=== PATIENT | male | born 1975 | race Caucasian/White ===

== ENCOUNTER 2017-04-02 12:07 | Emergency (ER) | payer OTHER ==
[~2017-04-02] VITALS: Ht 177.8 cm; Wt 95.1 kg
[~2017-04-02 12:07] MED LIST: HYDR5TAB27 PO; NXM/40 PO; PIRB200A INH
[2017-04-02 12:11] VITALS: TEMP 36.8; Ht 177.8 cm; Wt 95.1 kg
[2017-04-02] MEDS ORDERED: SULF800T23 PO (12:47)
[2017-04-02] MEDS ORDERED: TADA20TA PO (12:47)
--- NOTE | 2017-04-02 12:48 | EMERGENCY ROOM VISIT NOTE ---
History Report prepared by Nava: Gi Hernández Under the Supervision of: Dr. Emanuel Cervantes M.D. First contact with patient: 12:17 Chief Complaint: WOUND INFECTION Stated Complaint: BACK SURGERY OPEN WOUND WITH DISCHARGE Nursing Triage Summary: pt verbalizes he just had lower back surgery two weeks ago, took stitches out and replaced with steri strips. Pt verbalizes steri strips came off and now "there's a hole in my back with white drainage". Pts pcp referred pt here for checkup. History of Present Illness The patient is a 41 year old male who presents to the Emergency Room with complaints of persistent wound drainage starting 2 days ago. He had back surgery 2 weeks ago where 2 nodules on his right and left lower back were removed. The stitches were taken out 2 days ago at which time he was told the wounds were healing well. He had some discharge, but was told that it was normal and to put steri strips on. This morning he noticed a milky white discharge and came to the ED over concerns of infection. He denies any fever. He denies having any other medical problems. He is now on Bactrim. Source of History: patient Onset: 2 days ago Position: back (lower) Quality: other (wound drainage) Timing: other (persistent) Associated Symptoms: No fevers Review of Systems See HPI for pertinent positives & negatives. A total of 10 systems reviewed and were otherwise negative. Past Medical & Surgical Medical Problems: (1) Asthma Family History No pertinent family history stated. Social History Smoking Status: Never Smoker Marital Status: Occupation Status: employed Current/Historical Medications Scheduled Esomeprazole Magnesium (Nexium), 40 MG PO DAILY Sulfa/Trimethoprim (Bactrim Ds 800MG/160MG), 1 TAB PO BID Tadalafil (Cialis), 20 MG PO UD Scheduled PRN Hydrocodone/Acetaminophen 5MG/500MG (Vicodin (5MG/500MG)), 1 TABLET PO Q6H PRN for Pain Pirbuterol Acetate (Maxair Autohaler), 2 PUFFS INH Q4WK PRN for SOB/Wheezing Allergies Coded Allergies: Aspirin (Unverified Allergy, Mild, S.O.B, 04/02/17) Uncoded Allergies: ASA (Allergy, Unknown, SHORTNESS OF BREATH, 04/02/17) pt staes he has never taken aspirin, but was told to never take it r/t asthma Physical Exam Vital Signs Date Time Temp Pulse Resp B/P Pulse Ox O2 Delivery O2 Flow Rate FiO2 04/02/17 12:11 36.8 58 18 147/58 97 Room Air Physical Exam GENERAL: Patient is in no acute distress. HEENT: No acute trauma, normocephalic atraumatic, mucous membranes moist, no nasal congestion, no scleral icterus. NECK: No stridor, no adenopathy, no meningismus, trachea is midline. LUNGS: Clear to auscultation bilaterally, no wheeze, no rhonchi, breath sounds equal. HEART: Without murmurs gallops or rubs, regular rate and rhythm. ABDOMEN: Soft, nontender, bowel sounds positive, no hernias, no peritonitis. BACK: Two horizontal incisions to the lower lumbar spine, one on the left and one on the right, no midline spinal work was done, the wounds are each partially open, more so on the right, steri strips are partially in place, clear to serous discharge, no cellulitis, no foul odor. EXTREMITIES: No cyanosis or edema, full range of motion of all the joints without pain or difficulty, no signs for acute trauma. NEUROLOGIC: Oriented x 3, no acute motor or sensory deficits, no focal weakness. SKIN: No rash, no jaundice, no diaphoresis. Medical Decision & Procedures ED Course 1219: The patient was evaluated in room B7. A complete history and physical exam was performed. 1252: I discussed the patient's case with Judit Patel. He will see the patient on Tuesday. 1305: I reevaluated the patient. I discussed results and discharge instructions : he verbalized understanding and agreement. The patient is ready for discharge. Medical Decision Differential diagnoses considered include cellulitis, wound infection, abscess. The patient presents with concerns for wound infection. On exam, he is not febrile. There is no cellulitis. The drainage is serous and not pus like. The patient's wounds have opened, there is no obvious infection currently. He is on Bactrim and should continue this. I spoke to the patient's surgeon. The patient is being discharged with conservative measures. He will be seen in the office in 2 days. Before discharge, the patient had new Steri-Strips applied and dressings were placed. Consults Time Called: 1226 Consulting Physician: Judit Patel Returned Call: 1252 I discussed the patient's case with him. He will see the patient on Tuesday. Impression Primary Impression: Wound dehiscence Scribe Attestation The scribe's documentation has been prepared under my direction and personally reviewed by me in its entirety. I confirm that the note above accurately reflects all work, treatment, procedures, and medical decision making performed by me. Departure Information Dispostion Home / Self-Care Referrals No Doctor, Assigned (PCP) Forms HOME CARE DOCUMENTATION FORM, IMPORTANT VISIT INFORMATION Patient Instructions My [facility] Additional Instructions keep areas covered and watch for infection---fever, cloudy drainage, redness continue the Bactrim see your surgeon on Tuesday---call for an appt
[2017-04-02 13:20] VITALS: BP 135/62; PULSE 64; O2SAT 98
== END 2017-04-02 13:20 | disposition home or self-care (01) ==
LOC: C.EDB 12:11
DX: T81.30XA Disruption of wound, unspecified, initial encounter (principal); X58.XXXA Exposure to other specified factors, initial encounter; J45.909 Unspecified asthma, uncomplicated; Z79.899 Other long term (current) drug therapy; Z88.6 Allergy status to analgesic agent

== ENCOUNTER 2017-11-19 20:45 | Emergency (ER) | payer OTHER ==
[~2017-11-19] VITALS: Ht 177.8 cm; Wt 97.0 kg
[~2017-11-19 20:45] MED LIST changes: +SULF800T23 PO; +TADA20TA PO
[2017-11-19 20:47] VITALS: Ht 177.8 cm; Wt 97.0 kg
[2017-11-19] MEDS ORDERED: ONDANSETRON INJ 2 MG/ML 2 ML VIAL IV STA (21:32)
[2017-11-19] MEDS ORDERED: FENTANYL CITRATE INJ 50 MCG/1 ML 2 ML VIAL IV STA (21:32)
[2017-11-19] MEDS ORDERED: CLB200 PO (21:49)
[2017-11-19] MEDS ORDERED: ALBU18002 PO (21:49)
[2017-11-19] MEDS ORDERED: FLVHFA44 INH (21:50)
--- NOTE | 2017-11-19 22:31 | Endo History and Physical ---
History & Physical Date of Service: Nov 19, 2017. Chief Complaint: Referring Physician: History of Present Illness Patient eating steak and having food bolus obstruction Past Surgical History Hx Cardiac Surgery: No Hx Internal Defibrillator: No Hx Pacemaker: No Hx Abdominal Surgery: No Hx Cancer Surgery: No Hx Thoracic Surgery: No Hx Orthopedic: No Hx Urinary Tract Surgery: No Social History Smoking Status: Never Smoker Hx Substance Use: Yes (USES VICODIN PRN BACK PAIN) Hx Alcohol Use: No Allergies Coded Allergies: Aspirin (Unverified Allergy, Mild, S.O.B, 11/19/17) Uncoded Allergies: ASA (Allergy, Unknown, SHORTNESS OF BREATH, 04/02/17) pt staes he has never taken aspirin, but was told to never take it r/t asthma Current Medications Reported Home Medications Medications Dose Route/Sig Max Daily Dose Days Date Category Flovent Hfa (Fluticasone Propionate) 120 Puffs/5280 Mcg Aero 2 Puffs INH BID 30 11/19/17 Reported Proair Respiclick (Albuterol Sulfate) 108 Mcg/Act Aer 1 Puff PO DAILY PRN 11/19/17 Reported Celebrex (Celecoxib) 200 Mg Cap 200 Mg PO DAILY PRN 11/19/17 Reported Nexium (Esomeprazole Magnesium) 40 Mg Capcr 40 Mg PO DAILY 11/02/13 Reported Vital Signs Weight (Kilograms): 97.000 Height (Feet): 5 Height (Inches): 10.00 Date Time Temp Pulse Resp B/P (MAP) Pulse Ox O2 Delivery O2 Flow Rate FiO2 11/19/17 22:04 57 11/19/17 20:49 99 Room Air 11/19/17 20:47 36.7 58 18 148/91 99 Room Air Physical Exam General Appearance: + mild distress Respiratory/Chest: Auscultation: breath sounds normal Cardiovascular: Heart Auscultation: RRR (slightly tachy) Abdomen: Inspection & Palpation: soft Liver: non-tender Assessment and Plan stable for EGD in OR
[2017-11-19 22:36] VITALS: O2SAT 99
--- NOTE | 2017-11-19 23:07 | EMERGENCY ROOM VISIT NOTE ---
History Report prepared by Nava: Jareth Bruno Under the Supervision of: Dr. Fermin Gandara D.O. First contact with patient: 20:53 Chief Complaint: FOOD BOLUS Stated Complaint: ESOPHAGUS IS CLOSED History of Present Illness The patient is a 42 year old male who presents to the Emergency Room with complaints of constant problems swallowing for the past hour. Patient states the symptoms came on when he was trying to eat a piece of steak prior to arrival. He adds that he has been unable to eat any food. He states he is unable to swallow his own spit. Patient has associated symptoms of vomiting when he swallows his spit. He adds he has a history of these esophageal problems. He states the last time he was dilatated by his GI doctor was 2 years ago. Patient has been intermittently using his inhaler for his asthma. Source of History: patient Onset: 1 hour ago Position: throat Timing: constant Modifying Factors (Relieving): other (None) Associated Symptoms: + vomiting Review of Systems See HPI for pertinent positives & negatives. A total of 10 systems reviewed and were otherwise negative. Past Medical & Surgical Medical Problems: (1) Asthma Family History No pertinent family history. Social History Smoking Status: Never Smoker Marital Status: Occupation Status: employed Current/Historical Medications Scheduled Esomeprazole Magnesium (Nexium), 40 MG PO DAILY Fluticasone Propionate (Flovent Hfa), 2 PUFFS INH BID Scheduled PRN Albuterol Sulfate (Proair Respiclick), 1 PUFF PO DAILY PRN for Shortness of Breath Celecoxib (Celebrex), 200 MG PO DAILY PRN for Pain Allergies Coded Allergies: Aspirin (Unverified Allergy, Mild, S.O.B, 11/19/17) Physical Exam Vital Signs Date Time Temp Pulse Resp B/P (MAP) Pulse Ox O2 Delivery O2 Flow Rate FiO2 11/20/17 01:00 36.2 69 16 107/52 (70) 96 Room Air 11/20/17 00:40 36.3 63 20 117/73 94 Room Air 11/20/17 00:30 71 14 126/82 97 Room Air 11/20/17 00:20 76 20 119/75 96 Room Air 11/20/17 00:10 71 16 133/83 97 Room Air 11/20/17 00:00 36.2 77 20 138/84 98 Room Air 11/19/17 22:36 54 20 129/74 99 Room Air 11/19/17 22:04 57 11/19/17 20:49 99 Room Air 11/19/17 20:47 36.7 58 18 148/91 99 Room Air Physical Exam CONSTITUTIONAL/VITAL SIGNS: Reviewed / noted above. GENERAL: Non-toxic in appearance. INTEGUMENTARY: Warm, dry, and [place]. HEAD: Normocephalic. EYES: without scleral icterus or trauma. ENT/OROPHARYNX: clear and moist. LYMPHADENOPATHY/NECK: Is supple without lymphadenopathy or meningismus. RESPIRATORY: Lungs clear and equal. CARDIOVASCULAR: Regular rate and rhythm. GI/ABDOMEN: Soft and nontender. No organomegaly or pulsatile mass. No rebound or guarding. Normal bowel sounds. EXTREMITIES: Warm and well perfused. BACK: No CVA tenderness. NEUROLOGICAL: Intact without focal deficits. PSYCHIATRIC: normal affect. MUSCULOSKELETAL: Normally developed with good muscle tone. Medical Decision & Procedures Medications Administered Medications (Trade) Dose Ordered Sig/Lizet Route Start Time Stop Time Status Last Admin Dose Admin Ondansetron HCl (Zofran Inj) 4 mg NOW STAT IV 11/19/17 21:32 11/19/17 21:33 DC 11/19/17 21:53 4 MG Fentanyl Citrate (Fentanyl Inj) 50 mcg NOW STAT IV 11/19/17 21:32 11/19/17 21:33 DC 11/19/17 21:54 50 MCG ED Course 2054: Previous medical records were reviewed. The patient was evaluated in room C1. A complete history and physical examination was performed. 2130: I reassessed the patient and updated him on my talk with Dr. Raines. 2131: Fentanyl Citrate 50mcg IV, Zofran Inj 4mg IV 5: On reevaluation, the patient is resting comfortably. I discussed the results and findings with the patient. He verbalized agreement of the treatment plan. He was discharged home. Medical Decision Differential considered: pancreatitis, hepatitis, acute cholecystitis, AAA, UTI , pyelonephritis, kidney stones, appendicitis, diverticulitis, shingles, bowel obstruction, mesenteric ischemia, intussusception,hernia, testicular torsion. This is a 42-year-old male who presents to the ED with a chief complaint of esophageal food obstruction. The patient states that he has a history of eosinophilic esophagitis. About an hour prior to his arrival he was eating steak and after his first bite of steak, the patient could not swallow anymore. He has been spitting up his saliva since that time. He has seen Dr. Smith and Dr. Daniels in the past. The patient reports having his last dilatation of the esophagus 2 years ago. The patient has no other complaints. His physical exam was unremarkable. He is spitting up his saliva. After exam, I spoke with the GI specialist who will come and see the patient taken to the operating room. The patient was given some IV Zofran and IV fentanyl for discomfort. He was taken to the operating suite for endoscopy. Medication Reconcilliation Current Medication List: was personally reviewed by me Blood Pressure Screening Patient's blood pressure: Normal blood pressure Blood pressure disposition: Did not require urgent referral Consults Time Called: 2122 Consulting Physician: Dr. Olu Linares GI Returned Call: 2126 Discussed the patient's case. The patient will be evaluated for further treatment and disposition. Impression Primary Impression: Esophageal obstruction due to food impaction Scribe Attestation The scribe's documentation has been prepared under my direction and personally reviewed by me in its entirety. I confirm that the note above accurately reflects all work, treatment, procedures, and medical decision making performed by me. Departure Information Dispostion Home / Self-Care Referrals No Doctor, Assigned (PCP) Forms HOME CARE DOCUMENTATION FORM, IMPORTANT VISIT INFORMATION, WORK / SCHOOL INSTRUCTIONS Patient Instructions My [facility]
[2017-11-19] MEDS ORDERED: LIDOCAINE HCL 2% 2 ML VIAL (20MG/ML) ONE (23:15)
[2017-11-19] MEDS ORDERED: PROPOFOL IV EMULSION 10 MG/ML 20 ML VIAL IV ONE (23:15)
[2017-11-19] MEDS ORDERED: FENTANYL CITRATE INJ 50 MCG/1 ML 2 ML VIAL ONE (23:15)
[2017-11-19] MEDS ORDERED: SUCCINYLCHOLINE CHLORIDE 20 MG/ML 10 ML VIAL IV ONE (23:15)
[2017-11-19] MEDS ORDERED: ONDANSETRON INJ 2 MG/ML 2 ML VIAL ONE (23:53)
--- NOTE | 2017-11-20 00:09 | Discharge Instructions ---
Endoscopy Patient Instructions Date / Procedure(s) Performed Nov 20, 2017. EGD Allergy Information Coded Allergies: Aspirin (Unverified Allergy, Mild, S.O.B, 11/19/17) Uncoded Allergies: ASA (Allergy, Unknown, SHORTNESS OF BREATH, 04/02/17) pt staes he has never taken aspirin, but was told to never take it r/t asthma Discharge Date / Findings Nov 20, 2017. Food bolus removal/esophageal stricture Medication Instructions You must be compliant with your medications. Provider Instructions Activity Restrictions - No exercising or heavy lifting for 24 hours. - Do not drink alcohol the day of the procedure. - Do not drive a car or operate machinery until the day after the procedure. - Do not make any important decisions or sign important papers in 24 hours after the procedure. Following Day: - Return to full activity which may include returning to work/school. Diet Start your diet with liquids and light foods (jello, soup, juice, toast). Then eat your usual but soft diet if not nauseated. Chew food very well Treatment For Common After Affects For mild abdominal pain, bloating, or excessive gas: - Rest - Eat lightly - Lie on right side Follow-Up Information Follow-up with as scheduled Anesthesia Information What You Should Know You have had a procedure that required some medicine to reduce anxiety and discomfort. This treatment is called moderate sedation. After receiving the treatment, you may be sleepy, but you will be able to breathe on your own. The effects of the treatment may last for several hours. Follow these instructions along with Activity/Diet recommendations noted above: * Do NOT do anything where dizziness or clumsiness would be dangerous. * Rest quietly at home today, then you can be up and about tomorrow. * Have a responsible person stay with you the rest of today. * You may have had an I.V. today. If so, you may take the dressing off later today. Recommendations Call your doctor if: * Trouble breathing * Continuous vomiting for more than 24 hours * Temperature above 101 degrees * Severe abdominal pain or bloating * Pain not relieved by pain medicine ordered * There is increased drainage or redness from any incision * A large amount of rectal bleeding greater than 2-3 tablespoons. (If you had a polyp/s removed or have hemorrhoids, a small amount of blood - from the rectum is to be expected.) * You have any unanswered questions or concerns. IN THE EVENT OF A SERIOUS EMERGENCY, GO TO THE NEAREST EMERGENCY ROOM Your discharge instructions were prepared by provider Toribio Reynoso. Patient Instructions Signature Page Eulogio Murdock Patient (or Guardian) Signature/Date: I have read and understand the instructions given to me by my caregivers. Caregiver/RN/Doctor Signature/Date: The above-named patient and/or guardian has received patient instructions on this date. + Original Patient Signature Page (only) stays with chart. Please make copy for patient.
[2017-11-20] MEDS ORDERED: ONDANSETRON INJ 2 MG/ML 2 ML VIAL IV PRN (00:15)
[2017-11-20] MEDS ORDERED: ATROPINE SULFATE 0.1 MG/ML 5ML SYR IV PRN (00:15)
[2017-11-20] MEDS ORDERED: HYDROmorphone INJ 1 MG/ML SYR IV PRN (00:15)
[2017-11-20] MEDS ORDERED: EpHEDrine SULFATE INJ 50 MG/ML AMP IV PRN (00:15)
[2017-11-20] MEDS ORDERED: FENTANYL CITRATE INJ 50 MCG/1 ML 2 ML VIAL IV PRN (00:15)
[2017-11-20] MEDS ORDERED: ALBUTEROL HFA 8 GM INHALER INH ONE (00:15)
[2017-11-20] MEDS ORDERED: PROMETHAZINE HCL INJ 6.25 MG in SODIUM CHLORIDE 0.9% 50ML 50 ML IV PRN (00:15)
--- NOTE | 2017-11-20 00:21 | GI REPORT ---
Procedure Date: 11/19/2017 10:22 PM Procedure: Upper GI endoscopy Indications: Dysphagia, Foreign body in the esophagus Medicines: See the Anesthesia note for documentation of the administered medications Complications: No immediate complications. Estimated Blood Loss: Estimated blood loss was minimal. Procedure: Pre-Anesthesia Assessment: - Prior to the procedure, a History and Physical was performed, and patient medications, allergies and sensitivities were reviewed. The patient's tolerance of previous anesthesia was reviewed. - The risks and benefits of the procedure and the sedation options and risks were discussed with the patient. All questions were answered and informed consent was obtained. - Patient identification and proposed procedure were verified prior to the procedure by the physician and the nurse. The procedure was verified in the pre-procedure area. - Pre-procedure physical examination revealed no contraindications to sedation. - After reviewing the risks and benefits, the patient was deemed in satisfactory condition to undergo the procedure. After obtaining informed consent, the endoscope was passed under direct vision. Throughout the procedure, the patient's blood pressure, pulse, and oxygen saturations were monitored continuously. The Scope was introduced through the mouth, and advanced to the second part of duodenum. The upper GI endoscopy was performed with difficulty due to presence of foreign body. The patient tolerated the procedure well. Findings: Food was found in the upper third of the esophagus, in the middle third of the esophagus and in the lower third of the esophagus. Removal was accomplished with a Simmons net. The stomach was normal. The examined duodenum was normal. The cardia and gastric fundus were normal on retroflexion. Impression: - Food was found in the entire esophagus. Removal was successful but very difficult due to size of food bolus and esopageal rings. - Probable eosinophilic esophagitis. - Normal stomach. - Normal examined duodenum. Recommendation: - Continue present medications. - The states that the patient is non compliant and does not take his Nexium and steroid inhaler. I strongly encouraged patient to take his medications. - Discharge patient to home. Toribio Reynoso M.D. Toribio Reynoso MD 11/20/2017 12:21:10 AM This report has been signed electronically. Note Initiated On: 11/19/2017 10:22 PM I attest to the content of the Intraoperative Record and orders documented therein, exceptions below
--- NOTE | 2017-11-20 00:30 | Anesthesiology Progress Note ---
Anesthesia Post Op Note Date & Time Nov 20, 2017 at 00:30 Vital Signs Pain Intensity: 0 Vital Signs Past 12 Hours Date Time Temp Pulse Resp B/P (MAP) Pulse Ox O2 Delivery O2 Flow Rate FiO2 11/20/17 00:20 76 20 119/75 96 Room Air 11/20/17 00:10 71 16 133/83 97 Room Air 11/20/17 00:00 36.2 77 20 138/84 98 Room Air 11/19/17 22:36 54 20 129/74 99 Room Air 11/19/17 22:04 57 11/19/17 20:49 99 Room Air 11/19/17 20:47 36.7 58 18 148/91 99 Room Air Notes Mental Status: alert / awake / arousable, participated in evaluation Pt Amnestic to Procedure: Yes Nausea / Vomiting: adequately controlled Pain: adequately controlled Airway Patency, RR, SpO2: stable & adequate BP & HR: stable & adequate Hydration State: stable & adequate Anesthetic Complications: no major complications apparent
[2017-11-20 00:40] VITALS: BP 117/73; PULSE 63; TEMP 36.3; O2SAT 94
[2017-11-20 01:00] VITALS: BP 107/52; PULSE 69; TEMP 36.2; O2SAT 96
== END 2017-11-19 22:56 | disposition still patient (30) ==
LOC: C.EDB 20:46 → C.EDC 22:56
DX: T18.128A Food in esophagus causing other injury, initial encounter (principal); X58.XXXA Exposure to other specified factors, initial encounter; J45.909 Unspecified asthma, uncomplicated; Z87.19 Personal history of other diseases of the digestive system; Z79.899 Other long term (current) drug therapy; Z88.6 Allergy status to analgesic agent